=== PATIENT | female | born 1980 | race Caucasian/White ===

== ENCOUNTER 2018-10-29 13:30 | Outpatient (RCR) | payer OTHER, MEDICAID, SELFPAY ==
--- NOTE | 2018-10-15 16:24 | HP.PTEVAL ---
Patient's Visit Information REI CAMPO is a 38 year old F referred to Physical Therapy by ZAHEER MANJARREZ with a diagnosis of R hip pain s/p replacement, LBP, IT band syndrome. 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 She started working about 4 mo ago...Works at [employer] in [employer] [facility] and she can only work 5 hours shifts cause she cant stand on her leg anymore. Happening more and more where her leg is like and she has to drag it around for awhile and then it likes comes back to life and still has the aching. This happens 2-3 X/ day while working. When it happens the pain is like 50/10 with sharp stabiing pains in whole thigh area in the back of her hip. Dr thinks that the leslee that is in leg might be wobbling. Dr wants 6 weeks of PT.... Pt can walk and deal with the pain. She goes up stairs to get up into the house and holds onto the rail. SHe is totally weak B legs. No PT after the THR... Pt has nerve pain at scar area.... Pt can not take more then tylenol because of CKD..... - Pain R hip pain Pain Intensity (Out of 10): 7 Pain Intensity Range: 8 - Objective Gait: Walks with very antalgic gait with decrease stance time on the r SIDE with major limp. Trunk AROM: Flex, ext 50%. LE MMT: Able to 50% normal ROM Bridge, not able to do SLR on the R. Hip flex R 3-/4, L 4-/5, hip abd R 3-/5 and L 4+/5, knee flex B 4/5, knee ext B 4/5. Not able to walk on toes. Needs min A and still struggles with supine to sit. Pt asked for help to sit up. Stuggled with rolling side to side. Has not tried to lay on her stomach. Pt not able to s/l hip abd against gravity - Goals Goal 1:: I HEP Goal Time Frame: 4-6 Weeks Goal 2:: Increase R hip strength to be able to complete 2 X 10 S/L hip abd and SLR without difficulty Goal Time Frame: 4-6 Weeks Goal 3:: Be able to complete 5 hour shift at work without leg giving out on her Goal Time Frame: 4-6 Weeks Goal 4:: Decrease R hip pain to 1/10 with ADL's Goal Time Frame: 4-6 Weeks - Rehabilitation Potential Rehabilitation Potential: Good - Anticipated Interventions Patient/Client Instruction: Educate patient on: Condition For the Purpose of:: To decrease pain, To increase ROM, To improve nutrient delivery to tissue, To improve muscle performance and motor function, To increase tolerance to activity/condition/position, To improve performance and independence with ADL's, To decrease level of supervision to perform tasks, To improve gait and locomotor functions, To decrease soft tissue restriction, To increase flexibility/ROM Therapeutic Exercise to Include: Strength training, Gait and locomotor training, In an aquatic setting, Active ROM, Dynamic Lumbar Stabilization For the Purpose of:: To decrease pain, To improve nutrient delivery to tissue, To improve muscle performance and motor function, To improve ability to perform ADL's, To increase tolerance to activity/condition/position, To improve ability of physical actions for home/community/work/leisure, To improve gait and locomotor functions, To improve health of tissue Manual Therapy Techniques to Include: Scar massage, Soft tissue mobilization For the Purpose of:: To improve health of tissue Thank you for the opportunity to evaluate your patient. For Medicare and Medicare HMO plans, please review the plan of care and approve it. It will need to be FAXED BACK to us at [phone] for Medicare purposes. For Medicare only, by signing this I certify the plan of care. Please let me know if there are questions or concerns regarding this plan of care. Physician Signature: Date:
--- OUTSIDE RECORDS SUMMARY | 2018-12-10 18:43 | XMS RPT_ITS | Summary of Care ---
:1980 Author Organization [facility] Address [address] [place] [address] Phone Care Team Providers Name Role Phone Harvey Silverio MD Primary Care Provider Jose Mcghee MD Unavailable Encounter Details Date Type Department Care Team Description 10/31/2017 Hospital Encounter [facility] Harvey Silverio MD [address] [facility] [address] [place] [phone] [place], [place] [id number] Allergies No Known Allergiesas of this encounter Medications Prescription Sig. Disp. Refills Start Date End Date Status citalopram (CELEXA) 40 Take 40 mg by Active MG tablet mouth daily. traMADol (ULTRAM) 50 mg Take 50 mg by Active tablet mouth every 8 (eight) hours as needed for pain Takes 2 tabs every 8 hours . aspirin 325 MG tablet Take 325 mg by Active mouth 2 (two) times a day. oxyCODONE-acetaminophen Take 1-2 tablets 60 tablet 0 08/08/2016 Active (PERCOCET) 5-325 mg per by mouth every 4 tabletIndications: to 6 hours as Status post right hip needed for pain. replacement acetaminophen-codeine One tablet every 60 tablet 0 10/09/2016 Active (TYLENOL-CODEINE #3) 8 hours NEEDED 300-30 mg per for pain. tabletIndications: S/P hip replacement, right as of this encounter Active Problems Problem Noted Date Preoperative clearance 07/06/2016 Last Assessment & Plan: Patient is asymptomatic from a cardiac standpoint. She has no prior cardiac history. Her EKG is unremarkable. Given her paucity of symptoms and unremarkable EKG, I do not feel that further testing is indicated. I would consider her an acceptable risk for surgery from my point of view. Right leg pain Fibrous dysplasia of bone Hypertension IBS (irritable bowel syndrome) Social History Tobacco Use Types Packs/Day Years Used Date Former Smoker Cigarettes 0.25 Comments: Patient smokes the e cigarettes. Alcohol Use Drinks/Week oz/Week Comments No 0 Standard drinks or equivalent 0.0 Sex Assigned at Date Recorded Not on file as of this encounter Plan of Treatment Upcoming Encounters Date Type Specialty Care Team Description 01/29/2018 Hospital Encounter Alphonse Tripathi MD [address] [place] [address] [phone] Health Maintenance Due Date Last Done Comments PAP SMEAR 1980 TETANUS EVERY 10 YR 1978 URINE MICROALBUMIN 1988 SEQUENTIAL INFLUENZA VACCINE (#1) 2017 as of this encounter Insurance Payer Benefit Plan / Group Subscriber ID Type Phone Address AETNA AETNA CHOICE POS/POSII/PREMIER CARE/PREMIER [id number] CARE PLUS as of this encounter
--- OUTSIDE RECORDS SUMMARY | 2018-12-10 18:43 | XMS RPT_ITS | Summary of Care ---
:1980 Author Organization [facility] Address [address] [place] [address] Phone Care Team Providers Name Role Phone Harvey Silverio MD Primary Care Provider Jose Mcghee MD Unavailable Encounter Details Date Type Department Care Team Description 09/18/2017 Hospital Encounter [facility] Harvey Silverio MD [address] [place] [phone] [place], [place] [phone] Allergies No Known Allergiesas of this encounter [...] of bone Hypertension IBS (irritable bowel syndrome) as of this encounter Social History Tobacco Use Types Packs/Day Years Used Date Former Smoker Cigarettes 0.25 Comments: Patient smokes the e cigarettes. Alcohol Use Drinks/Week oz/Week Comments No 0 Standard drinks or equivalent 0.0 Sex Assigned at Date Recorded Not on file as of this encounter Plan of Treatment Upcoming Encounters Date Type Specialty Care Team Description 10/31/2017 Hospital Encounter Harvey Silverio MD [address] [place] [address] [phone] Health Maintenance Due Date Last Done Comments PAP SMEAR 1980 TETANUS EVERY 10 YR 1978 SEQUENTIAL INFLUENZA VACCINE (#1) 2017 as of this encounter Results Basic Metabolic Panel (09/18/2017 3:15 PM) Component Value Ref Range Glucose 89 70 - 99 mg/dL Comment: This test result might be falsely depressed or falsely elevated on samples drawn from patients taking Sulfasalazine and Sulfapyridine. Venipuncture should occur prior to taking either of these drugs. BUN 12 8 - 25 mg/dL Creatinine 1.20 (H) 0.40 - 1.10 mg/dL eGFR 50 (L) >60 ml/min/1.73sq.m Comment: Non- GFR Calc eGFR is an estimated Glomerular Filtration Rate based on the value of the patient's serum creatinine. In outpatients, eGFR should be used as a helpful tool in screening for CKD. In inpatients or patients with acute renal failure, eGFR represents the GFR at the moment of the draw and should be used with caution. eGFR >=60Comment: GFR Calc ml/min/1.73sq.m Calcium 9.8 8.4 - 10.2 mg/dL Sodium 141 135 - 145 mmol/L Potassium 3.8 3.5 - 5.1 mmol/L Chloride 108 98 - 108 mmol/L CO2 25 21 - 32 mmol/L Specimen Performing Laboratory Blood [address] [address] in this encounter Insurance Payer Benefit Plan / Group Subscriber ID Type Phone Address AETNA AETNA CHOICE POS/POSII/PREMIER CARE/PREMIER [id number] CARE PLUS as of this encounter
--- OUTSIDE RECORDS SUMMARY | 2018-12-10 18:43 | XMS RPT_ITS | Summary of Care ---
:1980 Author Organization [facility] Address [address] [place] [address] Phone Care Team Providers Name Role Phone Harvey Silverio MD Primary Care Provider Jose Mcghee MD Unavailable Encounter Details Date Type Department Care Team Description 07/26/2017 Hospital Encounter [facility] Harvey Silverio MD [address] [place] [phone] [place], [place] [phone] Allergies No Known Allergiesas of this encounter [...] Encounters Date Type Specialty Care Team Description 08/02/2017 Hospital Encounter Harvey Silverio MD [address] [place], [place] [id number] [phone] Health Maintenance Due Date Last Done Comments PAP SMEAR 1980 TETANUS EVERY 10 YR 1978 SEQUENTIAL INFLUENZA VACCINE (#1) 2017 as of this encounter Results Hemoglobin A1c (07/26/2017 8:19 AM) Component Value Ref Range Hemoglobin A1C 5.0 4.1 - 6.5 % Specimen Performing Laboratory Blood [address] [address] Cortisol (07/26/2017 8:19 AM) Component Value Ref Range Cortisol 16.78 3.09 - 22.40 mcg/dL Specimen Performing Laboratory Blood [address] [address] D-Dimer, Quantitative (07/26/2017 8:19 AM) Component Value Ref Range D-Dimer 0.41 <0.5 mcg/ml (FEU) Comment: The D-Dimer cut-off value of 0.50 ug/mL (FEU) is useful for the exclusion of PE and as an aid in the diagnosis of DVT when used in conjunction with clinical assessment pre-test probabilities. Specimen Performing Laboratory Blood [address] [address] Lipid Panel (07/26/2017 8:19 AM) Component Value Ref Range Cholesterol 153 100 - 199 mg/dL Triglycerides 65 25 - 120 mg/dL HDL 44 40 - 59 mg/dL LDL 96 10 - 150 mg/dL VLDL 13 5 - 40 mg/dL CHOL/HDL Ratio 3.5 3.2 - 5.0 Comment: Female Coronary Heart Disease Risk Factor (CHDRF): Average risk= 4.4 1/2 Average risk= 3.3 2 times Average risk= 7.1 Specimen Performing Laboratory Blood [address] [address] Comprehensive Metabolic Panel (07/26/2017 8:19 AM) Component Value Ref Range Glucose 95 70 - 99 mg/dL Comment: This test result might be falsely depressed or falsely elevated on samples drawn from patients taking Sulfasalazine and Sulfapyridine. Venipuncture should occur prior to taking either of these drugs. BUN 15 8 - 25 mg/dL Creatinine 1.25 (H) 0.40 - 1.10 mg/dL eGFR 48 (L) >60 ml/min/1.73sq.m Comment: Non- GFR Calc eGFR is an estimated Glomerular Filtration Rate based on the value of the patient's serum creatinine. In outpatients, eGFR should be used as a helpful tool in screening for CKD. In inpatients or patients with acute renal failure, eGFR represents the GFR at the moment of the draw and should be used with caution. eGFR 58 (L)Comment: GFR Calc >60 ml/min/1.73sq.m Calcium 8.4 8.4 - 10.2 mg/dL Sodium 140 135 - 145 mmol/L Potassium 4.2 3.5 - 5.1 mmol/L Chloride 111 (H) 98 - 108 mmol/L CO2 21 21 - 32 mmol/L AST 18 0 - 45 U/L Comment: This test result might be falsely depressed or falsely elevated on samples drawn from patients taking Sulfasalazine and Sulfapyridine. Venipuncture should occur prior to taking either of these drugs. ALT 27 14 - 65 U/L Comment: This test result might be falsely depressed or falsely elevated on samples drawn from patients taking Sulfasalazine and Sulfapyridine. Venipuncture should occur prior to taking either of these drugs. Alkaline Phosphatase 102 40 - 140 U/L Bilirubin, Total 0.4 0.3 - 1.2 mg/dL Total Protein 7.1 6.0 - 8.0 g/dL Albumin 3.8 3.2 - 5.2 g/dL Specimen [place] [address] TSH (07/26/2017 8:19 AM) Component Value Ref Range TSH 0.94 0.320 - 5.000 uIU/mL Specimen [place] [address] CBC and Differential (07/26/2017 8:19 AM) Component Value Ref Range WBC 9.2 3.4 - 10.6 K/mcL RBC 4.70 3.7 - 5.0 M/mcL Hemoglobin 15.2 11.6 - 15.4 g/dL Hematocrit 44.0 34.4 - 44.8 % MCV 93.5 82.6 - 98.9 FL MCH 32.4 27.9 - 33.9 pg MCHC 34.7 33.1 - 35.1 g/dL RDW 13.6 10.0 - 14.4 % Platelets 244 162 - 402 K/mcL MPV 9.7 7.0 - 10.6 FL Absolute Neutrophils 6.9 1.2 - 6.9 K/mcL Absolute Lymphocytes 1.5 1.0 - 3.7 K/mcL Absolute Monocytes 0.4 0.1 - 0.6 K/mcL Absolute Eosinophils 0.3 0 - 0.5 K/mcL Absolute Basophils 0.1 0 - 0.2 K/mcL Segmented Neut 75.4 % Lymphocytes 15.8 % Monocytes 4.5 % Eosinophils 3.2 % Basophils 1.1 % Specimen Performing Laboratory Blood [address] [address] in this encounter Insurance Payer Benefit Plan / Group Subscriber ID Type Phone Address AETNA AETNA CHOICE POS/POSII/PREMIER CARE/PREMIER [id number] CARE PLUS as of this encounter
--- OUTSIDE RECORDS SUMMARY | 2018-12-10 18:43 | XMS RPT_ITS | Summary of Care ---
:1980 Author Organization [facility] Address [address] [place] [address] Care Team Providers Name Role Phone Jose Mcghee MD Unavailable Alphonse Tripathi MD Primary Care Provider Reason for Visit Reason Comments Urinary Tract Infection Encounter Details Date Type Department Care Team Description 09/18/2018 Office Visit [facility] Primary Care Afia Thomas Dysuria (Primary Dx) Physicians RICARDO Fuentes [address] [place] [id number] [place], [place] [phone] [facility] [phone] Allergies Active Allergy Reactions Severity Noted Date Comments Tetracyclines 09/18/2018 SEVERE HEADACHES as of this encounter Medications Prescription Sig. Disp. Refills Start Date End Date Status buPROPion (WELLBUTRIN Take 1 (one) 60 tablet 01/29/2018 Active SR) 150 MG 12 hr tablet (150 mg 9 tablet total) by mouth 2 (two) times a day. gabapentin Take 600 mg by Active (NEURONTIN) 600 MG mouth 3 tablet (three) times a day. topiramate (TOPAMAX) Take 50 mg by Active 50 MG tablet mouth 2 (two) times a day. amitriptyline Take 1 (one) 30 tablet 08/12/2018 Active (ELAVIL) 25 MG tablet tablet (25 mg total) by mouth nightly. tiZANidine (ZANAFLEX) Take 1 (one) 30 tablet 08/12/2018 Active 4 MG tablet tablet (4 mg total) by mouth daily as needed for muscle spasms. sulfamethoxazole-trim Take 1 (one) 6 tablet 0 09/18/2018 Active ethoprim (BACTRIM tablet by 8 DS,SEPTRA DS) 800-160 mouth 2 (two) mg per times a day tabletIndications: for 3 days. Dysuria phenazopyridine Take 1 (one) 6 tablet 0 09/18/2018 Active (PYRIDIUM) 200 MG tablet (200 mg 8 tabletIndications: total) by Dysuria mouth 3 (three) times a day for 2 days. lidocaine (LIDODERM) Place 1 patch Discontinued 5 % patch on the skin 8 daily Remove & Discard patch within 12 hours or as directed by MD . as of this encounter Active Problems Problem Noted Date Dysuria 09/18/2018 Last Assessment & Plan: Likely to be cystitis with possible ureteral involvement based on her symptoms and presentation. Afebrile. She has had no menses for the past 4 months, so I am checking a urine hCG for her convenience. Prescribing her Bactrim DS as well as Pyridium for symptomatic relief. I have educated her on potential complications from UTIs. Zeinab understands to call us or go to the ED if her symptoms worsen or she becomes systemically ill. Hyperglycemia 08/12/2018 Muscle spasms of both lower extremities 08/12/2018 CKD (chronic kidney disease) stage 3, GFR 30-59 ml/min ([facility]) 05/07/2018 Chronic right hip pain 01/29/2018 Chronic pain syndrome 01/28/2018 Mood disorder of depressed type 01/28/2018 Fibrous dysplasia of bone IBS (irritable bowel syndrome) Resolved Problems Problem Noted Date Resolved Date Venous insufficiency of leg 01/28/2018 01/29/2018 Preoperative clearance 07/06/2016 01/29/2018 Last Assessment & Plan: Patient is asymptomatic from a cardiac standpoint. She has no prior cardiac history. Her EKG is unremarkable. Given her paucity of symptoms and unremarkable EKG, I do not feel that further testing is indicated. I would consider her an acceptable risk for surgery from my point of view. Right leg pain 01/29/2018 Hypertension 05/07/2018 Immunizations Name Dates Previously Given Next Due Tdap 10/31/2017 as of this encounter Social History Tobacco Use Types Packs/Day Years Used Date Former Smoker Cigarettes 0.25 Smokeless Tobacco: Never Used Comments: Patient smokes the e-cigarettes. Alcohol Use Drinks/Week oz/Week Comments No 0 Standard drinks or equivalent 0.0 Sex Assigned at Date Recorded Not on file as of this encounter Last Filed Vital Signs Vital Sign Reading Time Taken Blood Pressure 138/82 09/18/2018 9:08 AM EDT Pulse 80 09/18/2018 9:08 AM EDT Temperature 36.4 ??C (97.5 ??F) 09/18/2018 9:08 AM EDT Respiratory Rate 18 09/18/2018 9:08 AM EDT Oxygen Saturation 98% 09/18/2018 9:08 AM EDT Inhaled Oxygen Concentration - - Weight 140 kg (308 lb 9.6 oz) 09/18/2018 9:08 AM EDT Height - - Body Mass Index 45.57 09/18/2018 9:08 AM EDT in this encounter Instructions Patient Instructions - Afia Thomas CNP - 09/18/2018 9:34 AM EDT- Take Tylenol as needed for pain. - If your symptoms get worse, call us or go to the ED.in this encounter Progress Notes Afia Thomas CNP - 09/18/2018 9:17 AM EDTFormatting of this note may be different from the original. Zeinab Pritchett 1980 [id number] Chief Complaint Patient presents with ??? Urinary Tract Infection History Outpatient Prescriptions Marked as Taking for the 09/18/18 encounter (Office Visit) with Afia Thomas CNP Medication Sig Dispense Refill ??? amitriptyline (ELAVIL) 25 MG tablet Take 1 (one) tablet (25 mg total) by mouth nightly. 30 tablet 11 ??? buPROPion (WELLBUTRIN SR) 150 MG 12 hr tablet Take 1 (one) tablet (150 mg total) by mouth 2 (two) times a day. 60 tablet 11 ??? gabapentin (NEURONTIN) 600 MG tablet Take 600 mg by mouth 3 (three) times a day. ??? tiZANidine (ZANAFLEX) 4 MG tablet Take 1 (one) tablet (4 mg total) by mouth daily as needed for muscle spasms. 30 tablet 11 ??? topiramate (TOPAMAX) 50 MG tablet Take 50 mg by mouth 2 (two) times a day. Patient Active Problem List Diagnosis SNOMED CT(R) ??? Fibrous dysplasia of bone FIBROUS DYSPLASIA OF BONE ??? IBS (irritable bowel syndrome) IRRITABLE BOWEL SYNDROME ??? Chronic pain syndrome CHRONIC PAIN SYNDROME ??? Mood disorder of depressed type DEPRESSIVE DISORDER ??? Chronic right hip pain HIP PAIN ??? CKD (chronic kidney disease) stage 3, GFR 30-59 ml/min ([facility]) CHRONIC KIDNEY DISEASE STAGE 3 ??? Hyperglycemia HYPERGLYCEMIA ??? Muscle spasms of both lower extremities LOWER LIMB SPASTICITY ??? Dysuria DYSURIA Past Medical History: Diagnosis Date ??? Chronic pain syndrome 01/28/2018 ??? Fibrous dysplasia of bone ??? Fractures ??? Hypertension ??? IBS (irritable bowel syndrome) ??? Mood disorder of depressed type 01/28/2018 ??? Right leg pain ??? Venous insufficiency of leg 01/28/2018 Past Surgical History: Procedure Laterality Date ??? SECTION, CLASSIC ??? FRACTURE SURGERY Right hip ??? HIP SURGERY Right ??? TOTAL HIP ARTHROPLASTY Right Social History Social History ??? Marital status: Spouse name: N/A ??? Number of children: N/A ??? Years of education: N/A Occupational History ??? Not on file. Social History Main Topics ??? Smoking status: Former Smoker Packs/day: 0.25 Types: Cigarettes ??? Smokeless tobacco: Never Used Comment: Patient smokes the e-cigarettes. ??? Alcohol use No ??? Drug use: No ??? Sexual activity: Yes Partners: Male Other Topics Concern ??? Not on file Social History Narrative ??? No narrative on file Family History Problem Relation Age of Onset ??? Hypertension Father ??? Hypertension Sister ??? Hypertension Maternal Grandmother ??? Hypertension Mother ??? Hypertension Maternal Grandfather SUBJECTIVE History of Present Illness Zeinab is a 38 year old female who presents with dysuria. The problem began a couple of days ago and has gradually worsened. She is experiencing burning pain with every urination. Associated symptoms include discharge, hesitancy, urgency, frequency, flank pain, and nausea. She does not have chills, sweats, hematuria, or vomiting. She has tried [id number] Tylenol and 1-day of Uristat for the pain with little to no improvement. Her last LMP was April 2018. She is sexually active and has 1 partner (her ). Review of Systems Constitutional: Negative for appetite change, chills and fever. Gastrointestinal: Positive for nausea. Negative for abdominal pain, constipation, diarrhea and vomiting. Genitourinary: Positive for dysuria, flank pain, frequency, menstrual problem, pelvic pain, urgency and vaginal discharge. Negative for difficulty urinating and hematuria. Skin: Negative for color change and rash. OBJECTIVE Vitals: 09/18/18 0908 BP: 138/82 BP Location: Right arm Patient Position: Sitting BP Cuff Size: X-large Adult Pulse: 80 Resp: 18 Temp: 97.5 ??F (36.4 ??C) TempSrc: Oral SpO2: 98% Weight: (!) 140 kg (308 lb 9.6 oz) Physical Exam Constitutional: She appears well-developed and well-nourished. She appears ill. HENT: Head: Normocephalic. Cardiovascular: Normal rate, regular rhythm and normal heart sounds. Exam reveals no gallop and no friction rub. No murmur heard. Pulmonary/Chest: Effort normal and breath sounds normal. No respiratory distress. She exhibits no tenderness. Abdominal: Soft. Bowel sounds are normal. She exhibits no distension. There is no hepatosplenomegaly. There is tenderness. There is CVA tenderness. Vitals reviewed. ASSESSMENT & PLAN Problem List Items Addressed This Visit Other Dysuria - Primary Likely to be cystitis with possible ureteral involvement based on her symptoms and presentation. Afebrile. She has had no menses for the past 4 months, so I am checking a urine hCG for her convenience. Prescribing her Bactrim DS as well as Pyridium for symptomatic relief. I have educated her on potential complications from UTIs. Zeinab understands to call us or go to the ED if her symptoms worsen or she becomes systemically ill. Relevant Medications sulfamethoxazole-trimethoprim (BACTRIM DS,SEPTRA DS) 800-160 mg per tablet phenazopyridine (PYRIDIUM) 200 MG tablet Other Relevant Orders Outreach Urinalysis w/ Reflex Culture , Urine For any new medications prescribed today, Zeinab was educated about indications for the medication,how to take the medication and potential side effects of the medications. She is to follow-up with Dr. Tripathi in November, for her chronic medical problems, or as needed. Afia Thomas, MS, PIE MAKER MACHINE-PHYSICAL THERAPY PROFESSOR, MILITARY SOURCE OPERATIONS SPECIALIST-BCin this encounter Miscellaneous Notes Assessment & Plan Note - William Afia Fuentes, PHYSICAL THERAPY PROFESSOR - 09/18/2018 9:41 AM EDTAssociated Problem(s): DysuriaLikely to be cystitis with possible ureteral involvement based on her symptoms and presentation. Afebrile. She has had no menses for the past 4 months, so I am checking a urine hCG for her convenience. Prescribing her Bactrim DS as well as Pyridium for symptomatic relief. I have educated her on potential complications from UTIs. Zeinab understands to call us or go to the ED if her symptoms worsen or she becomes systemically ill.in this encounter Plan of Treatment Upcoming Encounters Date Type Specialty Care Team Description 11/26/2018 Office Visit Primary Care Alphonse Tripathi MD [address] [place] [id number] Scheduled Tests Name Priority Associated Diagnoses Order Schedule Outreach Urinalysis w/ Routine Dysuria Ordered: 09/18/2018 Reflex Culture , Urine Routine Dysuria 1 Occurrences starting 09/18/2018 until 09/18/2019 Health Maintenance Due Date Last Done Comments MAMMOGRAM 1980 PAP SMEAR 1980 URINE MICROALBUMIN 1988 LIPID PANEL 01/23/2018 07/26/2017 SEQUENTIAL INFLUENZA VACCINE (#1) 2018 TETANUS EVERY 10 YR 10/31/2027 10/31/2017 as of this encounter Visit Diagnoses Diagnosis Dysuria - Primary
--- OUTSIDE RECORDS SUMMARY | 2018-12-10 18:43 | XMS RPT_ITS | Summary of Care ---
:1980 Author Organization [facility] Address [address] [id number] Care Team Providers Name Role Phone Jose Mcghee MD Unavailable Alphonse Tripathi MD Primary Care Provider Encounter Details Date Type Department Care Team Description 08/06/2018 Hospital Encounter [facility] Alphonse Tripathi [address] [place] [address] [address] [place] [phone] Allergies No Known Allergiesas of this encounter Medications Prescription Sig. Disp. Refills Start Date End Date Status tiZANidine (ZANAFLEX) Take 4 mg by Active 4 MG tablet mouth 3 (three) times a day as needed for muscle spasms. lidocaine (LIDODERM) 5 Place 1 patch on Active % patch the skin daily Remove & Discard patch within 12 hours or as directed by . amitriptyline (ELAVIL) Take 1 (one) 30 tablet 3 01/29/2018 Active 25 MG tablet tablet (25 mg total) by mouth nightly. buPROPion (WELLBUTRIN Take 1 (one) 60 tablet 11 01/29/2018 01/29/2019 Active SR) 150 MG 12 hr tablet (150 mg tablet total) by mouth 2 (two) times a day. gabapentin (NEURONTIN) Take 600 mg by Active 600 MG tablet mouth 3 (three) times a day. topiramate (TOPAMAX) Take 50 mg by Active 50 MG tablet mouth 2 (two) times a day. traMADol (ULTRAM) 50 Take 1 (one) 30 tablet 0 05/07/2018 Active mg tabletIndications: tablet (50 mg Chronic right hip pain total) by mouth every 12 (twelve) hours as needed for pain. as of this encounter Active Problems Problem Noted Date CKD (chronic kidney disease) stage 3, GFR 30-59 ml/min 05/07/2018 Chronic right hip pain 01/29/2018 Chronic [...] Tobacco: Never Used Comments: Patient smokes the e cigarettes. Alcohol Use Drinks/Week oz/Week Comments No 0 Standard drinks or equivalent 0.0 Sex Assigned at Date Recorded Not on file as of this encounter Plan of Treatment Upcoming Encounters Date Type Specialty Care Team Description 08/12/2018 Office Visit Primary Care Alphonse Tripathi MD [address] [place] [address] [phone] Health Maintenance Due Date Last Done Comments MAMMOGRAM 1980 PAP SMEAR 1980 URINE MICROALBUMIN 1988 LIPID PANEL 01/23/2018 07/26/2017 SEQUENTIAL INFLUENZA VACCINE (#1) 2018 TETANUS EVERY 10 YR 10/31/2027 10/31/2017 as of this encounter Procedures Procedure Name Priority Date/Time Associated Diagnosis Comments BASIC METABOLIC Routine 08/06/2018 1:29 PM Results for this PANEL EDT procedure are in the results section. in this encounter Results Basic Metabolic Panel (08/06/2018 1:29 PM) Glucose 120 (H) 70 - 99 mg/dL [facility] Comment: HOSPITAL This test result might be falsely depressed or falsely elevated on samples drawn from patients taking Sulfasalazine and Sulfapyridine. Venipuncture should occur prior to taking either of these drugs. BUN 11 8 - 25 mg/dL [facility] Creatinine 1.20 (H) 0.40 - 1.10 mg/dL [facility] eGFR 50 (L) >60 [facility] Comment: ml/min/1.73sq.m [facility] Non- GFR Calc eGFR is an estimated Glomerular Filtration Rate based on the value of the patient's serum creatinine. In outpatients, eGFR should be used as a helpful tool in screening for CKD. In inpatients or patients with acute renal failure, eGFR represents the GFR at the moment of the draw and should be used with caution. eGFR >=60Comment: ml/min/1.73sq.m [facility] Citizen [place] GFR Calc HOSPITAL Calcium 9.0 8.4 - 10.2 mg/dL [facility] Sodium 141 135 - 145 mmol/L [facility] Potassium 4.2 3.5 - 5.1 mmol/L [facility] Chloride 110 (H) 98 - 108 mmol/L [facility] CO2 27 21 - 32 mmol/L [facility] Specimen Blood Performing Organization Address City/State/Zipcode Phone Number [facility] [address] [place] [address] in this encounter
--- OUTSIDE RECORDS SUMMARY | 2018-12-10 18:43 | XMS RPT_ITS | Summary of Care ---
:1980 Author Organization [facility] Address [address] [place] [address] Phone Care Team Providers Name Role Phone Harvey Silverio MD Primary Care Provider Jose Mcghee MD Unavailable Encounter Details Date Type Department Care Team Description 08/02/2017 Hospital Encounter [facility] Harvey Silverio MD [address] [place] [phone] [place], [place] [phone] Allergies No Known Allergiesas of this encounter [...] Hospital Encounter Harvey Silverio MD [address] [place] [address] [phone] Health Maintenance Due Date Last Done Comments PAP SMEAR 1980 TETANUS EVERY 10 YR 1978 SEQUENTIAL INFLUENZA VACCINE (#1) 2017 as of this encounter Results D-Dimer, Quantitative (07/11/2017 2:37 PM) Component Value Ref Range D-Dimer 0.30 <0.5 mcg/ml (FEU) Comment: The D-Dimer cut-off value of 0.50 ug/mL (FEU) is useful for the exclusion of PE and as an aid in the diagnosis of DVT when used in conjunction with clinical assessment pre-test probabilities. Specimen Performing Laboratory Blood [address] [address] in this encounter Insurance Payer Benefit Plan / Group Subscriber ID Type Phone Address AETNA AET[employer] CHOICE POS/POSII/PREMIER CARE/PREMIER [id number] CARE PLUS as of this encounter
--- OUTSIDE RECORDS SUMMARY | 2018-12-10 18:43 | XMS RPT_ITS | Summary of Care ---
:1980 Author Organization [facility] Address [address] [place] [address] Care Team Providers Name Role Phone Jose Mcghee MD Unavailable Alphonse Tripathi MD Primary Care Provider Encounter Details Date Type Department Care Team Description 09/18/2018 Hospital Encounter [facility] [address] [place] [address] Allergies Active Allergy Reactions Severity Noted Date Comments Tetracyclines 09/18/2018 SEVERE HEADACHES as of this encounter Medications Prescription Sig. Disp. Refills Start Date End Date Status buPROPion (WELLBUTRIN Take 1 (one) 60 tablet 11 01/29/2018 01/29/2019 Active SR) 150 MG 12 hr tablet tablet (150 mg total) by mouth 2 (two) times a day. gabapentin (NEURONTIN) Take 600 mg by Active 600 MG tablet mouth 3 (three) times a day. topiramate (TOPAMAX) 50 Take 50 mg by Active MG tablet mouth 2 (two) times a day. amitriptyline (ELAVIL) Take 1 (one) 30 tablet 08/12/2018 Active 25 MG tablet tablet (25 mg total) by mouth nightly. tiZANidine (ZANAFLEX) 4 Take 1 (one) 30 tablet 08/12/2018 Active MG tablet tablet (4 mg total) by mouth daily as needed for muscle spasms. sulfamethoxazole-trimeth Take 1 (one) 6 tablet 0 09/18/2018 09/21/2018 Active oprim (BACTRIM DS,SEPTRA tablet by DS) 800-160 mg per mouth 2 (two) tabletIndications: times a day Dysuria for 3 days. phenazopyridine Take 1 (one) 6 tablet 0 09/18/2018 09/20/2018 Active (PYRIDIUM) 200 MG tablet (200 mg tabletIndications: total) by Dysuria mouth 3 (three) times a day for 2 days. as of this encounter Active Problems Problem [...] kidney disease) stage 3, GFR 30-59 ml/min ([facility]) 05/07/2018 Chronic right hip pain 01/29/2018 Chronic [...] Office Visit Primary Care Alphonse Tripathi MD [address] [place] [address] [phone] Health Maintenance Due Date Last Done Comments MAMMOGRAM 1980 PAP SMEAR 1980 URINE MICROALBUMIN 1988 LIPID PANEL 01/23/2018 07/26/2017 SEQUENTIAL INFLUENZA VACCINE (#1) 2018 TETANUS EVERY 10 YR 10/31/2027 10/31/2017 as of this encounter Procedures Procedure Name Priority Date/Time Associated Comments Diagnosis [facility]HS - PREG TEST, Routine 09/18/2018 9:43 AM Results for this URINE QUAL EDT procedure are in the results section. URINALYSIS Routine 09/18/2018 9:43 AM Results for this EDT procedure are in the results section. in this encounter Results URINALYSIS (09/18/2018 9:43 AM) Color, Urine Liana [facility] Character Hazy [facility] Specific [place] 1.020 1.003 - 1.029 [facility] pH, Urine 6.0 4.5 - 8.0 [facility] Glucose, Urine 50 <70 mg/dL [facility] Ketones, Urine Negative NEG;NEGATIVE mg/dL [facility] Protein, Urine 30 (H) <30 mg/dL [facility] Blood, Urine Negative NEG;NEGATIVE [facility] Nitrite, Urine Positive (A) NEG;NEGATIVE [facility] Bilirubin, Urine Negative NEG;NEGATIVE [facility] Urobilinogen, Urine > 2.0 (H) <2 mg/dL [facility] Leukocyte Esterase, Urine Negative Negative [facility] WBCs, Urine 3 0 - 5 /HPF [facility] RBCs, Urine < 1 0 - 5 /HPF [facility] Squamous Epithelial 8 0 - 40 /HPF [facility] Trans. Epithelial < 1 0 - 3 /HPF [facility] Bacteria, Urine Rare NS;RARE /HPF [facility] Mucus, Urine Rare (A) None Seen /HPF [facility] Cast, Hyaline 2 0 - 5 /LPF [facility] Specimen Urine Performing Organization Address City/State/Zipcode Phone Number [facility] [address] [place] [address] Preg test, Urine Qual (09/18/2018 9:43 AM) Preg Test, Urine Qual Negative Negative [facility] Comment: HOSPITAL Rapid test procedural control acceptable. If a negative result is obtained but is suspected, hCG levels may be too low or urine may be too dilute for detection. Another specimen should be collected after 48-72 hours and tested. If waiting 48 hours is not medically advisable, the test result should be confirmed with a more sensitive quantitative serum hCG test. Specimen Urine Performing Organization Address City/State/Zipcode Phone Number [facility] [address] [place] [address] in this encounter
--- OUTSIDE RECORDS SUMMARY | 2018-12-10 18:43 | XMS RPT_ITS | Summary of Care ---
:1980 Author Organization [facility] Address [address] [place] [address] Care Team Providers Name Role Phone Jose Mcghee MD Unavailable Alphonse Tripathi MD Primary Care Provider Reason for Visit Reason Comments Follow-up F/U on chronic medical problems Encounter Details Date Type Department Care Team Description 08/12/2018 Office Visit [facility] Primary Alphonse Tripathi Mood disorder of depressed type (Primary Dx); Care Physicians MD Rashaun CKD (chronic kidney disease) stage 3, GFR 30-59 ml/min ([facility]); [address] Muscle spasms of both lower extremities; [place] [address] [place], [place] Hyperglycemia [phone] [id number] [phone] Allergies No Known Allergiesas of this encounter Medications Prescription Sig. Disp. Refills Start Date End Date Status lidocaine Place 1 patch Active (LIDODERM) 5 % on the skin patch daily Remove & Discard patch within 12 hours or as directed by . buPROPion Take 1 (one) 60 tablet 01/29/2018 01/29/2019 Active (WELLBUTRIN SR) 150 tablet (150 mg MG 12 hr tablet total) by mouth 2 (two) times a day. gabapentin Take 600 mg by Active (NEURONTIN) 600 MG mouth 3 tablet (three) times a day. topiramate Take 50 mg by Active (TOPAMAX) 50 MG mouth 2 (two) tablet times a day. amitriptyline Take 1 (one) 30 tablet 08/12/2018 Active (ELAVIL) 25 MG tablet (25 mg tablet total) by mouth nightly. tiZANidine Take 1 (one) 30 tablet 08/12/2018 Active (ZANAFLEX) 4 MG tablet (4 mg tablet total) by mouth daily as needed for muscle spasms. tiZANidine Take 4 mg by 08/12/2018 Discontinued (ZANAFLEX) 4 MG mouth 3 tablet (three) times a day as needed for muscle spasms. amitriptyline Take 1 (one) 30 tablet 3 01/29/2018 08/12/2018 Discontinued (ELAVIL) 25 MG tablet (25 mg tablet total) by mouth nightly. traMADol (ULTRAM) Take 1 (one) 30 tablet 0 05/07/2018 08/12/2018 Discontinued 50 mg tablet (50 mg tabletIndications: total) by Chronic right hip mouth every 12 pain (twelve) hours as needed for pain. as of this encounter Active Problems Problem Noted Date Hyperglycemia 08/12/2018 Muscle spasms of both lower extremities 08/12/2018 CKD (chronic kidney disease) stage 3, GFR 30-59 ml/min ([facility]) 05/07/2018 Chronic right hip pain 01/29/2018 Chronic [...] Vital Sign Reading Time Taken Blood Pressure 106/78 08/12/2018 11:03 AM EDT Pulse 88 08/12/2018 11:03 AM EDT Temperature 36.6 ??C (97.9 ??F) 08/12/2018 11:03 AM EDT Respiratory Rate 14 08/12/2018 11:03 AM EDT Oxygen Saturation 98% 08/12/2018 11:03 AM EDT Inhaled Oxygen Concentration - - Weight 142.3 kg (313 lb 12.8 oz) 08/12/2018 11:03 AM EDT Height 175.3 cm (5' 9) 08/12/2018 11:03 AM EDT Body Mass Index 46.34 08/12/2018 11:03 AM EDT in this encounter Progress Notes Alphonse Tripathi MD - 08/12/2018 12:22 PM EDTFormatting of this note may be different from the original. Zeinab Newberryjenny 1980 [id number] HPI: Patient was here today to follow-up on her chronic medical problems and recent lab test results. Renal insufficiency: Patient's recent lab tests again showed mild renal insufficiency with a GFR in the stage III CKD range at around 50. Patient denies any signs and symptoms of fluid overload. She has not been taking any [id number] nonsteroidal anti-inflammatory drugs. Depression: Patient has been compliant with the prescribed medications without any significant adverse effects and with reasonable control of her symptoms of depression. Denies any suicidal/homicidal ideation, significant mood swings, hallucinations or delusions. Patient also stated today that she does have intermittent muscle spasms in bilateral legs, sometimesmore in the right lower extremity compared to the left and the leg muscle spasm seem to be worse in the evening time and hence she was prescribed tizanidine by Dr. Silverio and has been taking this medication as needed with good relief of the symptoms and without any adverse effects. She was requestinga refill on the prescription of this medication. Patient Active Problem List Diagnosis SNOMED CT(R) ??? Fibrous dysplasia of bone FIBROUS DYSPLASIA OF BONE ??? IBS (irritable bowel syndrome) IRRITABLE BOWEL SYNDROME ??? Chronic pain syndrome CHRONIC PAIN SYNDROME ??? Mood disorder of depressed type DEPRESSIVE DISORDER ??? Chronic right hip pain HIP PAIN ??? CKD (chronic kidney disease) stage 3, GFR 30-59 ml/min (HCC) CHRONIC KIDNEY DISEASE STAGE 3 ??? Hyperglycemia HYPERGLYCEMIA ??? Muscle spasms of both lower extremities LOWER LIMB SPASTICITY Past Medical History: Diagnosis Date ??? Chronic [...] tobacco: Never Used Comment: Patient smokes the e cigarettes. ??? Alcohol use No ??? Drug use: No ??? Sexual activity: Not on file Other Topics Concern ??? Not on file Social History Narrative ??? No narrative on file Family History Problem Relation Age of Onset ??? Hypertension Father ??? Hypertension Sister ??? Hypertension Maternal Grandmother ??? Hypertension Mother ??? Hypertension Maternal Grandfather Review of Systems Constitutional: Negative. Respiratory: Negative. Cardiovascular: Negative. Gastrointestinal: Negative. Endocrine: Negative. Genitourinary: Negative. Neurological: Negative. Physical Exam: Vitals: 08/12/18 1103 BP: 106/78 BP Location: Right arm Patient Position: Sitting BP Cuff Size: Other (Comment) Pulse: 88 Resp: 14 Temp: 97.9 ??F (36.6 ??C) TempSrc: Oral SpO2: 98% Weight: (!) 142.3 kg (313 lb 12.8 oz) Height: 5' 9 Physical Exam Constitutional: She appears well-nourished. No distress. Neck: Carotid bruit is not present. Cardiovascular: Normal rate, regular rhythm, normal heart sounds and intact distal pulses. No murmur heard. Pulmonary/Chest: Effort normal and breath sounds normal. No respiratory distress. She has no wheezes. She has no rales. Abdominal: Soft. She exhibits no distension. There is no tenderness. Musculoskeletal: She exhibits no edema. Assessment & Plan: SNOMED CT(R) 1. Mood disorder of depressed type DEPRESSIVE DISORDER CBC 2. CKD (chronic kidney disease) stage 3, GFR 30-59 ml/min (HCC) CHRONIC KIDNEY DISEASE STAGE 3 CBC Basic Metabolic Panel 3. Muscle spasms of both lower extremities LOWER LIMB SPASTICITY 4. Hyperglycemia HYPERGLYCEMIA Hemoglobin A1c Depression: Seems to be stable with symptoms under control. Continue same medication regimen. Prescriptions were refilled today. CKD: Seems to be stable. Patient was advised to avoid exposure to any nonsteroidal anti-inflammatory drugs or other nephrotoxic agents like IV contrast etc. We will continue to monitor labs for now.Latest labs were reviewed and discussed in detail with patient. Leg muscle spasms: Patient seems to have chronic history of intermittent leg muscle spasms and good relief of the symptoms with tizanidine as needed. Hence, will continue same medication. Prescription was refilled today. I have discussed mild hyperglycemia on her recent labs. Her recent blood glucose was at 120 but patient claims that it was not a fasting blood sugar. Ordered a hemoglobin A1c. Patient was also encouraged to lose weight. Return in about 3 months (around 11/11/2018), or if symptoms worsen or fail to improve. Patient education & instructions given for: Patient was advised and encouraged to avoid smoking, alcohol and any illicit drug abuse. Patient was also counseled for fall precautions. ?? Details of medical condition explained and patient/caregiver was warned about the adverse consequences of uncontrolled medical conditions. Also cautioned about possible common adverse-effects and drug interactions of prescribed/OTC medications and also OTC/herbal supplements. Patient was recommended to review the medication information pamphlets/package inserts for complete list of adverse effects/contraindications, drug interactions etc., before starting any new medication. Patient was advised to watch for any adverse effects, and instructed to immediately discontinue the medication and call us orgo to ER if experiencing any adverse affects from the medications. Advised not to drive/drink alcohol/use heavy machinery when taking narcotic/other sedating medications. Counseling for diet and exercise provided. ?? All the addressed problems were discussed with the patient and advice given to call with any concerns or return to the office or go to a nearby ER if the symptoms do not improve or worsen or new symptoms develop. ? Health maintenance/preventive screening reviewed / ordered: Offered age- appropriate preventive services and screening. Patient has not had a gynecological exam and screening for quite some time and she would prefer to see an [facility] and hence was provided contact information for women's care. ? Please note: Portions of this chart may have been created with [employer] voice recognition software. Occasional wrong-word or sound-like substitutions may have occurred due to inherent limitations of the voice recognition software. Please read the chart carefully and recognize, using context, where the substitutions have occurred. Alphonse Tripathi MD in this encounter Plan of Treatment Upcoming Encounters Date Type Specialty Care Team Description 11/26/2018 Office Visit Primary Care Alphonse Tripathi MD [address] [place], [place] [id number] [phone] Scheduled Tests Name Priority Associated Diagnoses Order Schedule CBC Routine Mood disorder of depressed Expected: 11/11/2018, type Expires: 08/12/2019 CKD (chronic kidney disease) stage 3, GFR 30-59 ml/min ([facility]) Basic Metabolic Panel Routine CKD (chronic kidney disease) Expected: 11/11/2018, stage 3, GFR 30-59 ml/min Expires: 08/12/2019 ([facility]) Hemoglobin A1c Routine Hyperglycemia Expected: 11/11/2018, Expires: 08/12/2019 Health Maintenance Due Date Last Done Comments MAMMOGRAM 1980 PAP SMEAR 1980 URINE MICROALBUMIN 1988 LIPID PANEL 01/23/2018 07/26/2017 SEQUENTIAL INFLUENZA VACCINE (#1) 2018 TETANUS EVERY 10 YR 10/31/2027 10/31/2017 as of this encounter Visit Diagnoses Diagnosis Mood disorder of depressed type - Primary CKD (chronic kidney disease) stage 3, GFR 30-59 ml/min (HCC) Chronic kidney disease, Stage III (moderate) Muscle spasms of both lower extremities Hyperglycemia Other abnormal glucose
--- OUTSIDE RECORDS SUMMARY | 2018-12-10 18:43 | XMS RPT_ITS | Summary of Care ---
:1980 Author Organization [facility] Address [address] [place] [address] Phone Care Team Providers Name Role Phone Harvey Silverio MD Primary Care Provider Jose Mcghee MD Unavailable Encounter Details Date Type Department Care Team Description 10/31/2017 Hospital Encounter [facility] Harvey Silverio MD [address] [facility] [address] [place] [id number] [place], [place] [id number] Allergies No Known Allergiesas of this encounter [...] Hospital Encounter Alphonse Tripathi MD [address] [place] [id number] Health Maintenance Due Date Last Done Comments PAP SMEAR 1980 TETANUS EVERY 10 YR 1980 URINE MICROALBUMIN 1988 SEQUENTIAL INFLUENZA VACCINE (#1) 2017 as of this encounter Results Basic Metabolic Panel (10/31/2017 9:21 AM) Component Value Ref Range Glucose 100 (H) 70 - 99 mg/dL Comment: This test result might be falsely depressed or falsely elevated on samples drawn from patients taking Sulfasalazine and Sulfapyridine. Venipuncture should occur prior to taking either of these drugs. BUN 12 8 - 25 mg/dL Creatinine 1.10 0.40 - 1.10 mg/dL eGFR 55 (L) >60 ml/min/1.73sq.m Comment: Non- GFR Calc [...] caution. eGFR >=60Comment: GFR Calc ml/min/1.73sq.m Calcium 9.2 8.4 - 10.2 mg/dL Sodium 142 135 - 145 mmol/L Potassium 4.4 3.5 - 5.1 mmol/L Chloride 112 (H) 98 - 108 mmol/L CO2 23 21 - 32 mmol/L Specimen Performing Laboratory Blood [address] [address] in this encounter Insurance Payer Benefit Plan / Group Subscriber ID Type Phone Address AETNA AETNA CHOICE POS/POSII/PREMIER CARE/PREMIER [id number] CARE PLUS as of this encounter
--- OUTSIDE RECORDS SUMMARY | 2018-12-10 18:44 | XMS RPT_ITS | Summary of Care ---
:1980 Author Organization [facility] Address [address] [place] [address] Phone Care Team Providers Name Role Phone Unavailable Primary Care Provider Unavailable Encounter Details Date Type Department Care Team Description 07/11/2017 Hospital Encounter [facility] Harvey Silverio MD [address] [facility] [address] [place] [id number] [place] [address] [phone] Allergies No Known Allergiesas of this encounter [...] Encounters Date Type Specialty Care Team Description 07/16/2017 Office Visit Sports Medicine Jose Mcghee MD [address] [place] [address] [phone] 08/02/2017 Hospital Encounter Harvey Silverio MD [address] [place] [address] [phone] Health Maintenance Due Date Last Done Comments PAP SMEAR 1980 TETANUS EVERY 10 YR 1978 SEQUENTIAL INFLUENZA VACCINE (#1) 2017 as of this encounter Insurance Payer Benefit Plan / Group Subscriber ID Type Phone Address A[employer] AETNA CHOICE POS/POSII/PREMIER CARE/PREMIER [id number] CARE PLUS as of this encounter
--- OUTSIDE RECORDS SUMMARY | 2018-12-10 18:44 | XMS RPT_ITS ---
:1980 Author Organization OHIP Support Name Relationship Address Phone RADHA CAMPO Unavailable [address] + [place] [address] RAÚL LEE Unavailable [address] + [place] [address] [facility] Unavailable [address] + [place] [address] JERMAN CAMPO Unavailable Unavailable + JERMAN CAMPO Unavailable [address] + [place] [address] NOT GIVEN Unavailable [address] + [place], [place] [id number] JERMAN CAMPO Unavailable [address] + [place] [address] JERMAN CAMPO Unavailable [address] + [place] [address] JERMAN CAMPO Unavailable [address] + [place] [address] NOT GIVEN Unavailable [address] + [place], [place] [phone] JERMAN CAMPO Unavailable [address] [phone] [place] [address] RAÚL LEE Unavailable Unavailable + JERMAN CAMPO Unavailable [address] + [place] [address] JERMAN CAMPO Unavailable [address] + [place] [address] NOT GIVEN Unavailable [address] + [place], [place] [phone] JERMAN CAMPO Unavailable [address] + [place] [address] JERMAN CAMPO Unavailable [address] + [place] [address] NOT GIVEN Unavailable [address] + [place], [place] [id number] Care Team Providers Name Role Phone SUSAN GÓMEZ Attending Unavailable SUASN GÓMEZ Referring Unavailable DOCTOR, OUT OF TOWN Primary Care Unavailable REFERRING REFERRING, PHY PHY WO ID~[id number] Primary Care Unavailable OWOC DO, DR. ADILENE Pena Attending Unavailable REFERRING REFERRING, PHY PHY WO ID~[phone] Referring Unavailable AMIRALPHONSE MARKS Attending Unavailable AMIRKENDRICK, ALPHONSE DUNNE Primary Care Unavailable AMIRALPHONSE MARKS Attending Unavailable AMIRKENDRICK, ALPHONSE MCLAUGHLINISHNA Primary Care Unavailable AMIRALPHONSE MARKS Attending Unavailable REYRALPHONSE MARKS Primary Care Unavailable KARLA NAVA Attending Unavailable DEUCE, ALPHONSE DUNNE Primary Care Unavailable Deuce, Dr. Alphonse Toure Admitting Unavailable Amirneni, Dr. Alphonse Toure Attending Unavailable Amirkendrick, Dr. Alphonse Toure Admitting Unavailable Amirnejewels, Dr. Alphonse Toure Attending Unavailable Deuce, Dr. Alphonse Toure Admitting Unavailable Amirkendrick, Dr. Alphonse Toure Attending Unavailable William ROTARY SOIL STABILIZER, Karla Fuentes Admitting Unavailable William ROTARY SOIL STABILIZER, Karla Fuentes Attending Unavailable Ivanauskmodesto, Saulius Admitting Unavailable IvanauskMilagro salvadorus Attending Unavailable Jean Claude, Harvey Primary Care Unavailable Shana Manjarrezshbony Henderson Admitting Unavailable Shana Manjarrezshbony Henderson Attending Unavailable Amirnejewels, Carmelmsee K Referring Unavailable Jean Claude, Harvey Primary Care Unavailable Ophelia, Rusty D Admitting Unavailable Ophelia, Rusty D Attending Unavailable Jean Claude, Harvey Primary Care Unavailable Mykel Rehman Admitting Unavailable Mykel Rehman Attending Unavailable Amirneni, Vamsee K Primary Care Unavailable Ophelia, Rusty D Admitting Unavailable Ophelia, Rusty D Attending Unavailable Amirneni, Vamsee K Primary Care Unavailable Jaylin Block Admitting Unavailable Jaylin Block Attending Unavailable Amirneni, Vamsee K Primary Care Unavailable Evi Rae Admitting Unavailable FarEvi parks Attending Unavailable Amirneni, Vamsee K Primary Care Unavailable Evi Rae Admitting Unavailable Farcharly, Evi Horne Attending Unavailable Amirneni, Vamsee K Primary Care Unavailable RonanEvi parks Attending Unavailable Amirneni, Vamsee K Primary Care Unavailable PROBLEMS PROBLEMS DATE TYPE CONDITION / CODE ATTENDING STATUS SOURCE 09/18/2018 Admitting Dysuria / KARLA NAVA Active [facility] diagnosis R30.0(ICD-10) SHRUTHI Three Repository 08/12/2018 Admitting Other muscle spasm AMIRNENI, Active [facility] diagnosis / M62.838(ICD-10) VAMSEE VIBHA Three Repository 08/12/2018 Admitting Hyperglycemia, AMIRNENI, Active [facility] diagnosis unspecified / VAMSEE VIBHA Three R73.9(ICD-10) Repository 01/28/2018 Admitting Major depressive AMIRNENI, [facility] diagnosis disorder, single VAMSEE VIBHA Three episode, Repository unspecified / F32.9(ICD-10) 05/07/2018 Admitting Chronic kidney AMIRNENI, Active [facility] diagnosis disease, stage 3 VAMSEE VIBHA Three (moderate) / Repository N18.3(ICD-10) 01/29/2018 Admitting Pain in right hip AMIRNENI, Active [facility] diagnosis / M25.551(ICD-10) VAMSEE VIBHA Three Repository 01/29/2018 Admitting Other chronic pain AMIRNENI, Active [facility] diagnosis / G89.29(ICD-10) VAMSEE VIBHA Three Repository 05/07/2018 Admitting Dermatitis, AMIRNENI, Active [facility] diagnosis unspecified / VAMSEE VIBHA Three L30.9(ICD-10) Repository 10/06/2015 Admitting Essential AMIRNENI, Active [facility] diagnosis (primary) VAMSEE VIBHA Three hypertension / Repository I10(ICD-10) PROCEDURES PROCEDURES No Procedure Records FoundRESULTS RESULTS INITAL EVALUATION (1) Observed: 10/15/2018 Status: F Source: YURI Telles PT 7:21 PM [facility] REPOSITORY [facility] [address] [place] [address] Fax REHABILITATION SERVICES INITIAL EVALUATION MR#: [id number] Acct: [id number] Name: REI CAMPO Rep #: [id number] : 1980 38 From: Janet Martinez MPT Referring DrVishal: Status: REG RCR Insurance: AETNA SELF PAY INSURANCE Patient's Visit Information REI CAMPO is a 38 year old F referred to Physical Therapy by RUSTY MANJARREZ with a diagnosis of R hip pain s/p replacement, LBP, IT band syndrome. 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 She started working about 4 mo ago...Works at [employer] in the [employer] and she can only work 5 hours shifts cause she cant stand on her leg anymore. Happening more and more where her leg is like and she has to drag it around for awhile and then it likes comes back to life and still has the aching. This happens 2-3 X/ day while working. When it happens the pain is like 50/10 with sharp stabiing pains in whole thigh area in the back of her hip. thinks that the leslee that is in leg might be wobbling. wants 6 weeks of PT.... Pt can walk and deal with the pain. She goes up stairs to get up into the house and holds onto the rail. SHe is totally weak B legs. No PT after the THR... Pt has nerve pain at scar area.... Pt can not take more then tylenol because of CKD..... - Pain R hip pain Pain Intensity (Out of 10): 7 Pain Intensity Range: 8 - Objective Gait: Walks with very antalgic gait with decrease stance time on the r SIDE with major limp. Trunk AROM: Flex, ext 50%. LE MMT: Able to 50% normal ROM Bridge, not able to do SLR on the R. Hip flex R 3-/4, L 4-/5, hip abd R 3-/5 and L 4+/5, knee flex B 4/5, knee ext B 4/5. Not able to walk on toes. Needs min A and still struggles with supine to sit. Pt asked for help to sit up. Stuggled with rolling side to side. Has not tried to lay on her stomach. Pt not able to s/l hip abd against gravity - Goals Goal 1:: I HEP Goal Time Frame: 4-6 Weeks Goal 2:: Increase R hip strength to be able to complete 2 X 10 S/L hip abd and SLR without difficulty Goal Time Frame: 4-6 Weeks Goal 3:: Be able to complete 5 hour shift at work without leg giving out on her Goal Time Frame: 4-6 Weeks Goal 4:: Decrease R hip pain to 1/10 with ADL's Goal Time Frame: 4-6 Weeks - Rehabilitation Potential Rehabilitation Potential: Good - Anticipated Interventions Patient/Client Instruction: Educate patient on: Condition For the Purpose of:: To decrease pain, To increase ROM, To improve nutrient delivery to tissue, To improve muscle performance and motor function, To increase tolerance to activity/condition/position, To improve performance and independence with ADL's, To decrease level of supervision to perform tasks, To improve gait and locomotor functions, To decrease soft tissue restriction, To increase flexibility/ROM Therapeutic Exercise to Include: Strength training, Gait and locomotor training, In an aquatic setting, Active ROM, Dynamic Lumbar Stabilization For the Purpose of:: To decrease pain, To improve nutrient delivery to tissue, To improve muscle performance and motor function, To improve ability to perform ADL's, To increase tolerance to activity/condition/position, To improve ability of physical actions for home/community/work/leisure, To improve gait and locomotor functions, To improve health of tissue Manual Therapy Techniques to Include: Scar massage, Soft tissue mobilization For the Purpose of:: To improve health of tissue Thank you for the opportunity to evaluate your patient. For Medicare and Medicare HMO plans, please review the plan of care and approve it. It will need to be FAXED BACK to us at [phone] for Medicare purposes. For Medicare only, by signing this I certify the plan of care. Please let me know if there are questions or concerns regarding this plan of care. Physician Signature: Date: <Electronically signed by Janet Martinez MPT> 10/15/18 1921 CC: OUT OF TOWN DOCTOR Signed XR HIP 2-3 VIEWS Observed: 10/13/2018 Status: F Source: ESTHER CHAO 10:23 AM [facility] REPOSITORY Exam Date/Time: 10/13/2018 10:32 EST Reason for Exam: Pain, Non Traumatic Report STUDY: XR Hip 2-3 Views Right; 10/13/2018 10:32 am INDICATION: Pain, Non Traumatic. COMPARISON: None. ACCESSION NUMBER(S): [id number] ORDERING CLINICIAN: Nikita Posadas TECHNIQUE: AP and lateral views of the right hip were obtained. FINDINGS: The patient is status post right total hip arthroplasty. There is no acute fracture or dislocation identified. Lyjt-of-vhxfectw hypertrophic degenerative changes are seen in the right sacroiliac joint. IMPRESSION: 1. Postoperative changes status post right total hip arthroplasty. 2. No evidence of acute fracture or dislocation. 3. Degenerative changes, as described above. FINAL REPORT Dictated: 10/13/2018 11:01 am Kareem Montoya MD Signed (Electronic Signature): 10/13/2018 11:01 am Signed by: Kareem Montoya MD Technologist: [facility] TEST,URINE Collected: 09/18/2018 Status: F Source: [facility] QUAL 9:43 AM [facility] REPOSITORY TYPE CODE TESTS RESULT OUT OF REFERENCE UNITS RANGE LAB PREGUR Negative Normal Negative Test,Urine Qual Result Comment: Rapid test procedural control acceptable. If a negative result is obtained but is suspected, hCG levels may be too low or urine may be too dilute for detection. Another specimen should be collected after 48-72 hours and tested. If waiting 48 hours is not medically advisable, the test result should be confirmed with a more sensitive quantitative serum hCG test. Performed By: #### PREGUR, UA #### Unless otherwise noted, all testing performed by [place] [id number] CLIA: [id number] Ice House Supervisor: Sb Arthur M.D. URINALYSIS, ROUTINE Collected: 09/18/2018 Status: F Source: [facility] 9:43 AM [facility] REPOSITORY TYPE CODE TESTS RESULT OUT OF RANGE REFERENCE UNITS LAB COLOR Normal Color, Urine Liana LAB CHAUR Normal Character Hazy LAB SPGRUR 1.003-1.029 Normal Specific 1.020 [place],Urine LAB PHUR 4.5-8.0 Normal pH,Urine 6.0 LAB GLUCUR < 70 mg/dL Normal Glucose,Urine 50 LAB KETUR NEG;NEGATIVE mg/dL Normal Ketone,Urine Negative LAB PROTUR < 30 mg/dL High Protein,Urine 30 LAB BLDUR NEG;NEGATIVE Normal Blood,Urine Negative LAB NITUR NEG;NEGATIVE Abnormal Nitrite,Urine Positive LAB BILIUR NEG;NEGATIVE Normal Bilirubin,Urine Negative LAB UROUR <2 mg/dL High Urobilinogen,Ur > 2.0 ine LAB LEUESTUR Negative Normal Leuk.Esterase,U Negative rine LAB WBCUR 0-5 /HPF Normal WBC,Urine 3 LAB RBCUR 0-5 /HPF Normal RBC,Urine < 1 LAB SQEPI 0-40 /HPF Normal Squamous 8 Epithelial LAB TRANSEPI 0-3 /HPF Normal Trans. < 1 Epithelial LAB BACTUR NS;RARE /HPF Normal Bacteria,Urine Rare LAB MUCUSUR None Seen /HPF Abnormal Mucus, Urine Rare LAB CASTHY 0-5 /LPF Normal Cast, Hyaline 2 Performed By: #### PREGUR, UA #### Unless otherwise noted, all testing performed by [place] [address] CLIA: [id number] Ice House Supervisor: Sb Arthur M.D. Observed: 09/18/2018 Status: F Source: [facility] CULTURE, URINE 9:43 AM [facility] REPOSITORY Test Name: Culture, Urine Culture Status: Final Culture Report: No significant growth. Micro Source: Urine - clean catch Performed By: #### URCUL #### Unless otherwise noted, all testing performed by [address] [place], [place] [address] CLIA: [id number] Ice House Supervisor: Sb Arthur M.D. BASIC METABOLIC PANEL Collected: 08/06/2018 Status: F Source: [facility] 1:29 PM [facility] REPOSITORY TYPE CODE TESTS RESULT OUT OF REFERENCE UNITS RANGE LAB GLU 70-99 mg/dL High Glucose 120 Result Comment: This test result might be falsely depressed or falsely elevated on samples drawn from patients taking Sulfasalazine and Sulfapyridine. Venipuncture should occur prior to taking either of these drugs. LAB BUN 8-25 mg/dL BUN 11 LAB CREA 0.40-1.10 mg/dL Creatinine High 1.20 LAB eGFR >60 ml/min/1.73s Low q.m eGFR,NonAfrican-Am erican 50 Result Comment: Non- GFR Calc eGFR is an estimated Glomerular Filtration Rate based on the value of the patient's serum creatinine. In outpatients, eGFR should be used as a helpful tool in screening for CKD. In inpatients or patients with acute renal failure, eGFR represents the GFR at the moment of the draw and should be used with caution. LAB eGFRB ml/min/1.73sq.m eGFR, -Bahamian >=60 Result Comment: GFR Calc LAB CALCM 8.4-10.2 mg/dL Calcium 9.0 LAB NA 135-145 mmol/L Sodium 141 LAB K 3.5-5.1 mmol/L Potassium 4.2 LAB CL 98-108 mmol/L Chloride High 110 LAB CO2 21-32 mmol/L CO2 27 Performed By: #### CHEM8 #### Unless otherwise noted, all testing performed by [address] [place], [place] [address] CLIA: [id number] Ice House Supervisor: Sb Arthur M.D. CBC WITH DIFF Collected: 01/29/2018 Status: F Source: [facility] 11:22 AM [facility] REPOSITORY TYPE CODE TESTS RESULT OUT OF REFERENCE UNITS RANGE LAB WBC 3.4-10.6 K/mcL WBC High 10.7 LAB RBC 3.7-5.0 M/mcL RBC 4.85 LAB HGB 11.6-15.4 g/dL Hemoglobin 14.9 LAB HCT 34.4-44.8 % Hematocrit 44.6 LAB MCV 82.6-98.9 FL MCV 91.9 LAB MCH 27.9-33.9 pg MCH 30.6 LAB MCHC 33.1-35.1 g/dL MCHC 33.3 LAB RDW 10.0-14.4 % RDW 14.0 LAB PLT 162-402 K/mcL Platelet Count 225 LAB MPV 7.0-10.6 FL MPV High 10.8 LAB NEUT# 1.2-6.9 K/mcL High Neutrophil # 8.2 LAB LYMPH# 1.0-3.7 K/mcL Lymphocyte # 1.8 LAB MONO# 0.1-0.6 K/mcL Monocyte # 0.4 LAB EOS# 0-0.5 K/mcL Eosinophil # 0.2 LAB BASO# 0-0.2 K/mcL Basophil # 0.1 LAB SEGNEU% % Segmented Neut % 77.1 LAB LYMP% % Lymphocyte% 16.4 LAB MO% % Monocyte % 4.0 LAB EO% % Eosinophil % 1.5 LAB BA% % Basophil % 1.0 Performed By: #### CBCDIF, CMET, TSH #### Unless otherwise noted, all testing performed by [place] [id number] CLIA: [id number] Ice House Supervisor: Sb Arthur M.D. TSH Collected: 01/29/2018 Status: F Source: [facility] 11:22 AM [facility] REPOSITORY TYPE CODE TESTS RESULT OUT OF RANGE REFERENCE UNITS LAB TSH 0.320-5.000 uIU/mL Normal TSH 1.08 Result Comment: Samples from patients routinely receiving high dose biotin therapy (100-300 mg/day) may show falsely decreased results. Please correlate clinically. Performed By: #### CBCDIF, CMET, TSH #### Unless otherwise noted, all testing performed by [address] [place], [place] [address] CLIA: [id number] Ice House Supervisor: Sb Arthur M.D. COMPREHENSIVE METABOLIC Collected: 01/29/2018 Status: F Source: [facility] PANEL 11:22 AM [facility] REPOSITORY TYPE CODE TESTS RESULT OUT OF RANGE REFERENCE UNITS LAB GLU 70-99 mg/dL Normal Glucose 84 Result Comment: This test result might be falsely depressed or falsely elevated on samples drawn from patients taking Sulfasalazine and Sulfapyridine. Venipuncture should occur prior to taking either of these drugs. LAB BUN 8-25 mg/dL Normal BUN 16 LAB CREA 0.40-1.10 mg/dL High Creatinine 1.27 LAB eGFR >60 ml/min/1.73s Low q.m eGFR,NonAfrican-A merican 47 Result Comment: Non- GFR Calc eGFR is an estimated Glomerular Filtration Rate based on the value of the patient's serum creatinine. In outpatients, eGFR should be used as a helpful tool in screening for CKD. In inpatients or patients with acute renal failure, eGFR represents the GFR at the moment of the draw and should be used with caution. LAB eGFRB >60 ml/min/1.73sq.m eGFR, -Bahamian Low 56 Result Comment: GFR Calc LAB CALCM 8.4-10.2 mg/dL Calcium Normal 8.8 LAB NA 135-145 mmol/L Sodium Normal 139 LAB K 3.5-5.1 mmol/L Normal Potassium 4.3 LAB CL 98-108 mmol/L Chloride Normal 108 LAB CO2 21-32 mmol/L CO2 Normal 23 LAB AST 0-45 U/L AST Normal (SGOT) 20 Result Comment: This test result might be falsely depressed or falsely elevated on samples drawn from patients taking Sulfasalazine and Sulfapyridine. Venipuncture should occur prior to taking either of these drugs. LAB ALT 14-65 U/L Normal ALT (SGPT) 47 Result Comment: This test result might be falsely depressed or falsely elevated on samples drawn from patients taking Sulfasalazine and Sulfapyridine. Venipuncture should occur prior to taking either of these drugs. LAB ALKP 40-140 U/L Normal Alkaline Phosphatase 106 LAB BILIT 0.3-1.2 mg/dL Normal Bilirubin,Total 0.4 LAB PROT 6.0-8.0 g/dL Normal Protein, Total 7.5 LAB ALB 3.2-5.2 g/dL Normal Albumin 4.3 Performed By: #### CBCDIF, CMET, TSH #### Unless otherwise noted, all testing performed by [facility] [address] [place], [place] [address] CLIA: [id number] Ice House Supervisor: Sb Arthur M.D. ALLERGIES ALLERGIES DATE TYPE / CODE NAME / CODE REACTION SEVERITY SOURCE 10/02/2018 Drug No Known Unknown [place] Allergy/416 Allergies/[id number] Community 817066(SNOM 8(RXNORM) Hospital ED CT) Repository 09/18/2018 Drug TETRACYCLINES [facility] Class/17221 Three Repository 1003(SNOMED CT) Drug NO KNOWN ALLERGIES [facility] Class/10990 Three Repository 1003(SNOMED CT) Drug/624414 dicyclomine pressure [facility] 003(SNOMED [facility]) brain System Repository Drug/051815 No Known Allergies [facility] 003(SNOMED [facility]) System Repository ENCOUNTERS ENCOUNTERS ADMIT/DISCHARGE ACCOUNT NUMBER ADMITTING ENCOUNTER LOCATION SOURCE CLASS 10/29/2018 [id number] [facility] ng:PT Repository 10/13/2018 [id number] [facility] ng:[facility] Repository 10/13/2018/ [id number] [facility]m 018 [facility] ng:[facility] Repository 10/13/2018/ [id number] [facility]m 018 [facility] ng:SamOrthoRoo Repository m: Room 5 10/13/2018 [id number] Ambulatory [address] [place] [address] Repository 09/18/2018 [id number] William ROTARY SOIL STABILIZER, Ambulatory [facility] Repository 09/18/2018/ [id number] [address]ulatory [address] Three Repository 08/28/2018 [id number] [facility] Regional ng:[facility] System Repository 08/28/2018/ [id number] Ophelia, [facility] Mu-Ism 018 [facility] ng:[facility]: System CD:[id number] Repository 08/12/2018/ [id number] Ambulatory Building:[address] Three Repository 08/06/2018 [id number] [facility] Toure and [facility] Repository 05/08/2018/ [id number] Emergency ABuilding:[address] Repository 05/07/2018/ [id number] Ambulatory Building:[address] Three Repository 04/08/2018/[id number] [facility] Mu[facility]Ism 018 Mykel Swanson [facility] ng:CD:[id number] [place] [address]Room: System CD:[id number] Repository 03/27/2018/[id number] [facility] Mu[facility]Ism 018 Rusty D [facility] ng:[facility] Repository 02/27/2018/ [id number] [facility] Mu[facility]m 018 [facility] ng:[facility] System Repository 01/29/2018 [id number] Deuce Ambulatory [facility] Dr[facility] Alphonse Toure and [facility] Repository 01/29/2018/ [id number] Ambulatory Building:[address] [facility] Three Repository 01/29/2018 [id number] Deuce, [facility] Dr[facility] Alphonse Toure and [facility] Repository 01/24/2018/ [id number] Ivpeter, Emergency Mu-Ism Mu-Ism 018 [facility] ng: EDRoom: Health WR System Repository PAYERS PAYERS ENCOUNTER GUARANTOR PAYER SUBSCRIBER SOURCE 10/29/2018 REI Welch [id number] S Insurance:AETNAPolicy LEIBOLTDOB: Community [place]IDGE Number: [id number] [id number] Repository [address]Xse: (330) Date:1464-41-96[phone] (HP) [id number] [place] [phone]: 10/29/2018 Secondary NOT GIVENUNK Yuri Insurance:SELF PAY [facility] Number: Effective Repository Date:2018-10-01 10/13/2018 REI Ortaaritan LEIBOLTDOB: Insurance:AETNAPolicy LEIBOLTDOB: [facility] S Number: Effective [id number] System BRIDGE Date:2018-10-13 BRIDGE Repository [place], [place] 4313-45-61[place] [address]Rua: Name:CD:[id number] [address] [address]Bkt: [address] [place] [address] (HP) [phone]: [phone] ([phone] () 10/13/2018 REI Ortaaritan LEIBOLTDOB: Insurance:AETNAPolicy LEIBOLTDOB: [facility] S Number: Effective [id number] System BRIDGE Date:2018-10-13 BRIDGE Repository [place], [place] 4778-16-12[place] [address]Fss: Name:CD:[id number] [address] [address]Tcj: [address] [place] [address] (HP) [phone]: [phone]) (HP) [phone] (WP) 10/13/2018 REI Horne Primary JERMAN Santana [facility]: Insurance:[facility] ALEXB: [facility] S AETNAPolicy Number: [id number] [place], [place] Date:2018-10-13 [place] [address]Ffp: [id number] [address]Chu: Name:CD:[id number] O (HP) [address], [place] ()Tel: [phone]: () [phone] 10/13/2018 REI Horne Primary [facility]ENTERLTDOB: [facility] HospitalB: Insurance:AetnaPolicy [id number] [facility] S Number: [facility] [id number] [place], [place] Date:Plan Name:[place] [address] [phone]: () 09/18/2018 Primary JERMAN WAGNER [facility] Insurance:Justino JOHNSONB: Lynn and Number: [id number] [place] [id number] Date:Plan Name:[place], [place] Repository [address] 09/18/2018 Secondary REI Horne [facility] Insurance:Shaw JOHNSONB: Victoriano and [facility] [id number] [facility] Number: [facility] [id number], [place] Repository Date:Plan [address]Oco: (253) Name:[facility] [phone] () [facility] [address] [place] [address]TA: 09/18/2018 REI Primary JERMAN MCMANUSLTDOB: [facility] Hospital[facility]: Insurance:AETNAPoly [id number] [facility] S Number: S BRIDGE Repository BRIDGE [id number] [place], [place] Date:3232-02-20NZ [address] [address]Jye: [phone]: [phone], [place] [phone] (HP) [phone] (HP) [phone]: 09/18/2018 Secondary [facility] Health Insurance:SHAW MARQUEZ: Three MANAGED [id number] Repository MEDICAIDPolicy S BRIDGE Number: [place], [place] [id number] [id number] Date:3941-56-[id number] [place] [address]YY: 08/28/2018 [facility] JERMAN Gretta OrtaMu-Ism ALBERDOB: Insurance:[facility] S Number: Effective [id number] System BRIDGE Date:2018-08-28 BRIDGE Repository [place], [place] 4684-52-58[place] [address]Xig: Name:CD:[id number] [id number]: [id number] [place] [address] (HP) [phone]: [phone] ([phone] () 08/28/2018 [facility] JERMAN Glynn Mu-Ism ALBERDOB: Insurance:AETNAPolalicey LEIBOLTDOB: [facility] S Number: Effective [id number] System BRIDGE Date:2018-06-23 BRIDGE Repository [place], [place] 1693-43-03[place]xt[place] [address]Qni: Name:CD:[id number] [id number]: [id number], [place] (HP) [phone]: [phone] ([phone] () 08/12/2018 REI Primary JERMAN LEIBOLTDOB: [facility] LEIBOLTDOB: Insurance:AETNAPolicy [id number] [facility] S Number: [facility] [id number] [place], [place] Date:4625-33-20[address]Url: [phone]: [phone], [place] [phone] (HP) [phone] (HP) [phone]: 08/12/[address] [facility] Health Insurance:FISHERSIMON KIRKLTDOB: Three MANAGED [id number] Repository MEDICAIDPolicy S BRIDGE Number: [place], [place] [id number] Date:5033-18-06ID [address] [place] [address]AE: 08/06/2018 Primary JERMAN WAGNER [facility] Insurance:AetnaPolradha LEIBOLTDOB: Lynn and Number: [id number] [place] [id number] [facility] Date:Plan Name:[place], [place] Repository [address] 08/06/2018 Secondary [facility] Insurance:Shaw KIRKLTB: Victoriano and [facility] [id number] [facility] Number: [facility] [id number] [place] Repository Date:Plan [phone]: 330) Name:[place] [phone] (HP) [facility] PennsylvaniaPO [address] [place] [address]RF: 05/08/2018 REI L Primary JERMAN LEIBOLTDOB: [facility]: Insurance:AETNA [id number] [facility] NACPolicy Number: [facility] [id number] [place] Date:2018-05-08 [address]Czv: [phone]: [phone] [id number] [phone] (HP)Tel: [phone] (HP) Name:ASHLEY SNYDER [id number], [place] (WP) [address]PY: 05/07/2018 REI Primary [facility] CenterBOLTDOB: Insurance:[facility]: [facility] S MANAGED [id number] Repository BRIDGE MEDICAIDPolicy S [place], [place] Number: [place], [place] [address]Gox: ([phone] [id number] [phone] (HP) Date:2366-85-01IX [address] [address]AR: 05/07/2018 Secondary [facility] Insurance:[facility]ORL[facility]OB: Three MANAGED [id number] Repository MEDICAIDPolicy S BRIDGE Number: [place], [place] [id number] Date:1923-44-06BS [address] [address]SZ: 04/08/2018 [facility] JERMAN JOHNSONB: [facility] S Number: Effective [id number] System BRIDGE Date:2018-04-08 BRIDGE Repository [place], [place] 7666-53-76[place] [address]Wwa: Name:CD:[id number] [id number]: [id number], [place] (HP) [phone]: [phone] ([phone] (WP) 03/27/2018 REI Horne Primary JERMAN JOHNSONB: Insurance:AETNAPolradha KIRKLTDOB: [facility] S Number: Effective [id number] System BRIDGE Date:2018-02-27 [place], [place] 1302-55-14[place] [address]Gqg: Name:CD:[id number] [id number]: [id number] [place] [address] (HP) [phone]: [phone] ([phone] (WP) 02/27/2018 REI Horne Primary JERMAN CAMPODOB: Insurance:AETNAPolradha KIRKLTDOB: [facility] S Number: Effective [id number] System BRIDGE Date:2018-02-11 [place], [place] 6429-31-15[place] [address]Ypr: Name:CD:[id number] [id number]: [id number] [place] [address] (HP) [phone]: [phone] ([phone] (WP) 01/29/2018 Primary JERMAN KRISTY [facility] Insurance:AeGordy MARQUEZ: Victoriano and Number: [id number] [place] [id number] Health [facility] Date:Plan Name:[place], [place] Repository [address] 01/29/2018 Secondary REI Horne [facility] Insurance:Shaw MARQUEZ: Victor[place] and August of [id number] [facility] Number: [facility] [id number], [place] Repository Date:Plan [address]Jso: ([phone]) Name:[facility] [phone] (HP) [facility] [id number] [place] [address]EI: 01/29/2018 REI Primary JERMAN LEIBOLTDOB: [facility]BOLTDOB: Insurance:[facility] [id number] Three S Number: S BRIDGE Repository BRIDGE [id number], [place] Date:7415-41-51IA [address] [address]Phr: [phone]: [phone], [place] [phone] (HP) [phone] (HP) [address]DX: 01/29/2018 Secondary JERMAN LEIBOLTDOB: [facility] Insurance:[facility] [id number] Three Number: S BRIDGE Repository [id number], [place] Date:2640-32-86XL [address] [address]Qfm: [phone] [id number] [place] [phone] (HP) [address]MT: 01/24/2018 REI L Primary JERMAN MCMANUSBOLTDOB: Insurance:[facility]ELong [facility] HospitalB: [facility] S Number: Effective [id number] System BRIDGE Date:2018-01-24 BRIDGE Repository [place], [place] 9599-20-57Cwry[address] [place] [address]Qbq: Name:CD:[id number] [id number]: [id number] [place] (HP) [phone]: [phone] ()
--- OUTSIDE RECORDS SUMMARY | 2018-12-10 18:44 | XMS RPT_ITS | Summary of Care ---
:1980 Author Organization [facility] Address [address] [place] [address] Phone Care Team Providers Name Role Phone Unavailable Primary Care Provider Unavailable Encounter Details Date Type Department Care Team Description 07/11/2017 Hospital Encounter [facility] Harvey Silverio MD [address] [place] [address] [place] [address] [phone] Allergies No Known Allergiesas of this encounter [...] Visit Sports Medicine Jose Mcghee MD [address] [place] [address] [phone] 08/02/2017 Hospital Encounter Harvey Silverio MD [address] [place] [address] [phone] Health Maintenance Due Date Last Done Comments PAP SMEAR 1980 TETANUS EVERY 10 YR 1978 SEQUENTIAL INFLUENZA VACCINE (#1) 2017 as of this encounter Insurance Payer Benefit Plan / Group Subscriber ID Type Phone Address AETNA AETNA CHOICE POS/POSII/PREMIER CARE/PREMIER [id number] CARE PLUS as of this encounter
--- OUTSIDE RECORDS SUMMARY | 2018-12-10 18:44 | XMS RPT_ITS | Summary of Care ---
:1980 Author Organization [facility] Address [address] [place] [address] Care Team Providers Name Role Phone Jose Mcghee MD Unavailable Alphonse Tripathi MD Primary Care Provider Reason for Visit Reason Comments Follow-up F/U on chronic medical problems, skin rash Encounter Details Date Type Department Care Team Description 05/07/2018 Office Visit [facility] Primary Alphonse Tripathi Dermatitis (Primary Dx); Care Physicians MD Rashaun CKD (chronic kidney disease) stage 3, GFR 30-59 ml/min; [address] Chronic [place] [address] [place], [place] [phone] [address] [phone] Allergies No Known Allergiesas of this encounter Medications Prescription Sig. Disp. Refills Start Date End Date Status tiZANidine Take 4 mg by Active (ZANAFLEX) 4 MG mouth 3 (three) tablet times a day as needed for muscle spasms. lidocaine Place 1 patch Active (LIDODERM) 5 % on the skin patch daily Remove & Discard patch within 12 hours or as directed by . amitriptyline Take 1 (one) 30 tablet 3 01/29/2018 Active (ELAVIL) 25 MG tablet (25 mg tablet total) by mouth nightly. buPROPion Take 1 (one) 60 tablet 11 01/29/2018 Active (WELLBUTRIN SR) 150 tablet (150 mg 9 MG 12 hr tablet total) by mouth 2 (two) times a day. gabapentin Take 600 mg by Active (NEURONTIN) 600 MG mouth 3 (three) tablet times a day. topiramate Take 50 mg by Active (TOPAMAX) 50 MG mouth 2 (two) tablet times a day. traMADol (ULTRAM) Take 1 (one) 30 tablet 0 05/07/2018 Active 50 mg tablet (50 mg tabletIndications: total) by mouth Chronic right hip every 12 pain (twelve) hours as needed for pain. clotrimazole-betame Apply topically 30 g 0 05/07/2018 Active thasone (LOTRISONE) 2 (two) times a 8 cream day for 10 days. clindamycin Take 300 mg by Discontinued (CLEOCIN) 300 MG mouth 3 (three) 8 capsule times a day. topiramate Take 1 (one) 30 tablet 2 01/29/2018 Discontinued (TOPAMAX) 50 MG tablet (50 mg 8 tablet total) by mouth daily. gabapentin Take 1 (one) 90 capsule 2 01/29/2018 Discontinued (NEURONTIN) 300 MG capsule (300 mg 8 capsule total) by mouth 3 (three) times a day 3 month's supply. traMADol (ULTRAM) Take 1 (one) 90 tablet 2 01/29/2018 Discontinued 50 mg tablet (50 mg 8 tabletIndications: total) by mouth Chronic right hip every 8 (eight) pain hours as needed for pain. as of [...] Smoker Cigarettes 0.25 Smokeless Tobacco: Never Used Tobacco Cessation: Counseling Given: Yes Comments: Patient smokes the e cigarettes. Alcohol Use Drinks/Week oz/Week Comments No 0 Standard drinks or equivalent 0.0 Sex Assigned at Date Recorded Not on file as of this encounter Last Filed Vital Signs Vital Sign Reading Time Taken Blood Pressure 118/64 05/07/2018 10:08 AM EDT Pulse 88 05/07/2018 10:08 AM EDT Temperature 36.8 ??C (98.2 ??F) 05/07/2018 10:08 AM EDT Respiratory Rate 16 05/07/2018 10:08 AM EDT Oxygen Saturation 99% 05/07/2018 10:08 AM EDT Inhaled Oxygen Concentration - - Weight 136 kg (299 lb 12.8 oz) 05/07/2018 10:08 AM EDT Height 175.3 cm (5' 9) 05/07/2018 10:08 AM EDT Body Mass Index 44.27 05/07/2018 10:08 AM EDT in this encounter Progress Notes Alphonse Tripathi MD - 05/07/2018 10:45 AM EDTFormatting of this note may be different from the original. Zeinab Newberryjenny 1980 [id number] HPI: Patient was here today mainly to follow-up on her chronic medical problems but also complained of patches of skin rash. Patient stated today that she has developed patches of dry scaly skin rash on her left leg, left alejandro also right foot and she has noticed this rash in the past month or so. She does not have much itching on the rash. She has tried OTC hydrocortisone without much relief of the symptoms. Patient stated that she was given Lotrisone by Dr. Silverio in the past when she had similar rash and she seemedto have relief from it. Chronic right hip pain: Patient stated that she started seeing a pain management physician in [place] for her right hip pain and he has increased the dose of gabapentin and Topamax and she has been Tolerating these medications well. She also is tapering off her tramadol at this time and is currently taking 1 tablet twice daily in the past few days. Requesting a refill on the prescription of this medication so that she can completely tapered off. Her hip pain symptoms seem to be reasonably under control with current medication regimen. She also stated that her pain management physician will not prescribe her the Ultram at this time. Patient's recent labs also showed renal insufficiency with a GFR in the stage III kidney disease andpatient seems to have had mild renal insufficiency for quite some time based on her old labs. She does not have any known history of kidney problems or kidney stones. She has been monitoring her blood pressure at home on a regular basis and it has been consistently in the range of 110???120/65???80. Patient Active Problem List Diagnosis SNOMED CT(R) ??? Fibrous dysplasia of bone FIBROUS DYSPLASIA OF BONE ??? IBS (irritable bowel syndrome) IRRITABLE BOWEL SYNDROME ??? Chronic pain syndrome CHRONIC PAIN SYNDROME ??? Mood disorder of depressed type DEPRESSIVE DISORDER ??? Chronic right hip pain HIP PAIN ??? CKD (chronic kidney disease) stage 3, GFR 30-59 ml/min CHRONIC KIDNEY DISEASE STAGE 3 Past Medical History: Diagnosis Date ??? Chronic [...] Negative. Gastrointestinal: Negative. Endocrine: Negative. Genitourinary: Negative. Physical Exam: Vitals: 06/20/18 1008 BP: 118/64 BP Location: Right arm Patient Position: Sitting BP Cuff Size: X-large Adult Pulse: 88 Resp: 16 Temp: 98.2 ??F (36.8 ??C) TempSrc: Oral SpO2: 99% Weight: 136 kg (299 lb 12.8 oz) Height: 5' 9 Physical Exam Constitutional: She is oriented to person, place, and time. She appears well- nourished. No distress. Obese patient Neck: Carotid bruit is not present. No thyromegaly present. Cardiovascular: Normal rate, regular rhythm, normal heart sounds and intact distal pulses. No murmur heard. Pulmonary/Chest: Effort normal and breath sounds normal. No respiratory distress. She has no wheezes. She has no rales. Abdominal: Soft. Bowel sounds are normal. She exhibits no distension. There is no tenderness. Musculoskeletal: She exhibits no edema. Neurological: She is alert and oriented to person, place, and time. Skin: Three patches of dry scaly skin rash, one each on right foot, left arm and left leg, ranging from 1 cm to 1 inch Assessment & Plan: SNOMED CT(R) 1. Dermatitis ECZEMA 2. CKD (chronic kidney disease) stage 3, GFR 30-59 ml/min CHRONIC KIDNEY DISEASE STAGE 3 Basic Metabolic Panel 3. Chronic right hip pain HIP PAIN traMADol (ULTRAM) 50 mg tablet Skin rash: Possibly tinea infection. Prescribed Lotrisone. Patient was also counseled for skin hygiene. CKD: I have discussed possible complications and also possible etiology for CKD. Patient was advised to avoid any nephrotoxic agents like nonsteroidal anti- inflammatory drugs and IV contrast etc. We will continue to monitor her labs for now. Repeat BMP in 3 months. Chronic right hip pain: Patient was again advised to taper off and completely discontinue Ultram in the next 1 month and she was given a prescription for 30 tablets. She is currently taking 1 tablet twice daily in the past 4 days and hence she was advised to continue 1 tablet twice daily for the next1 week and then 1 tablet once daily for the next 10 days and then 1 tablet every other day until it is completely gone. She was advised to continue to follow-up with pain management as well. Advised to lose weight. Return in about 3 months (around 08/07/2018). Patient education & instructions given for: Patient [...] and she would prefer to see an CAMPAIGN SPECIALIST and hence was provided contact information for women's care. ? Please note: Portions of this chart may have been created with Secure64 voice recognition software. Occasional wrong-word or sound-like substitutions may have occurred due to inherent limitations of the voice recognition software. Please read the chart carefully and recognize, using context, where the substitutions have occurred. Alphonse Tripathi MD in this encounter Plan of Treatment Upcoming Encounters Date Type Specialty Care Team Description 08/12/2018 Office Visit Primary Care Alphonse Tripathi MD [address] [address] [phone] Scheduled Tests Name Priority Associated Diagnoses Order Schedule Basic Metabolic Panel Routine CKD (chronic kidney disease) Expected: 08/07/2018, stage 3, GFR 30-59 ml/min Expires: 05/07/2019 Health Maintenance Due Date Last Done Comments PAP SMEAR 1978 URINE MICROALBUMIN 1988 LIPID PANEL 01/23/2018 07/26/2017 SEQUENTIAL INFLUENZA VACCINE (Season Ended) 2018 TETANUS EVERY 10 YR 10/31/2027 10/31/2017 as of this encounter Visit Diagnoses Diagnosis Dermatitis - Primary Contact dermatitis and other eczema, due to unspecified cause CKD (chronic kidney disease) stage 3, GFR 30-59 ml/min Chronic kidney disease, Stage III (moderate) Chronic right hip pain
--- NOTE | 2019-02-20 09:33 | HP.PT.NRP ---
HP - Discharge Summary (1) - Patient Information REI CAMPO was seen in my office for initial evaluation on 10/15/18. The following Plan of Care was established for this patient: Initial Frequency: 2-3x /Week Initial Duration: 6 Weeks - Anticipated Interventions Patient/Client Instruction: Educate patient on: Condition For the Purpose of:: To decrease pain, To increase ROM, To improve nutrient delivery to tissue, To improve muscle performance and motor function, To increase tolerance to activity/condition/position, To improve performance and independence with ADL's, To decrease level of supervision to perform tasks, To improve gait and locomotor functions, To decrease soft tissue restriction, To increase flexibility/ROM Therapeutic Exercise to Include: Strength training, Gait and locomotor training, In an aquatic setting, Active ROM, Dynamic Lumbar Stabilization For the Purpose of:: To decrease pain, To improve nutrient delivery to tissue, To improve muscle performance and motor function, To improve ability to perform ADL's, To increase tolerance to activity/condition/position, To improve ability of physical actions for home/community/work/leisure, To improve gait and locomotor functions, To improve health of tissue Manual Therapy Techniques to Include: Scar massage, Soft tissue mobilization For the Purpose of:: To improve health of tissue This patient was last seen in our office 10/29/18. Pertinent comments regarding their Physical therapy will appear below: Pt did not reschedule with supervising PT for her DC visit. She will be discharged at this time. At this point I will be discontinuing this patient from physical therapy. I would be happy to see this patient again in the future if found appropriate by the physician. Thank you! Janet Martinez, MPT
== END 2018-10-29 19:00 | disposition home or self-care (01) ==
LOC: PT 13:30
DX: M25.551 Pain in right hip (principal); M54.5 Low back pain; M76.30 Iliotibial band syndrome, unspecified leg; L90.5 Scar conditions and fibrosis of skin; Z96.641 Presence of right artificial hip joint
CPT/HCPCS: 97110; 97113; 97161

== ENCOUNTER 2019-09-15 08:38 | Emergency (ER) | payer OTHER, MEDICAID, SELFPAY ==
[2019-09-15 08:39] VITALS: BP 165/87; PULSE 109; RESP 22; TEMP 36.2; O2SAT 99; BMI 47.2
--- NOTE | 2019-09-15 08:54 | ED.VIS.GEN ---
History of Present Illness Chief Complaint: Cough Informant: Patient Onset: Today, Days - 3 Timing: Continuous Current Severity: Moderate Maximum Severity: Moderate Narrative: Patient presents with cough congestion and inability to sleep for the past 3 days. She was seen by the urgent care she was given steroids she was given antibiotics as well as cough medications. She continues to have the symptoms and shows little improvement after 3 days. He has no fever or chills she has no breathing difficulty. She has some abdominal pain from coughing. She has no diarrhea. She has no headache neck pain or neck stiffness. Past Medical History - Allergies and Home Meds Allergies/Adverse Reactions: Allergies No Known Allergies Allergy (Verified 09/15/19 08:39) Primary Care Physician: Vanessa Mendoza,Out of [Primary Care Provider] - Past Medical History: - - Chronic right hip pain Smoking Status: Current every day smoker Review of Systems All systems negative except as indicated General: Denies: Fever ENT: Reports: Rhinorrhea, Sore throat. Denies: Bilateral ear pain Cardiovascular: Denies: Chest pain, Palpitations Respiratory: Reports: Cough. Denies: Dyspnea, Dyspnea on exertion Musculoskeletal: Denies: Myalgias, Arthralgias, Neck pain, Back pain Skin: Denies: Rash Neurological: Denies: Weakness Psych: Denies: Depression Endocrine: Denies: Polyuria Hematologic: Denies: Easy bruising Physical Exam Vital Signs/Narrative: Vital Signs Temp Pulse Resp BP Pulse Ox 09/15/19 08:39 97.1 F L 109 H 22 H 165/87 H 99 General: Well nourished Eyes: Perrl ENT: - - There is upper airway congestion, rhinorrhea, nasal turbinates are slightly swollen but they are pink and not erythematous. There is some postnasal drip but no pharyngeal erythema or exudates Cardiovascular: Regular rate, Regular rhythm Respiratory: No distress, CTA bilaterally Abdomen: Soft, Nontender Back: Nontender, Normal Inspection Extremities: Nontender Skin: Normal color Neurological: Alert, Normal Strength, Normal Sensation Diagnostic/Tx/Re-eval - Medical Decision Making Patient has clear lungs and an upper respiratory infection clinically. This is been ongoing for 3 days she is certainly does not meet any criteria for antibiotics. She is already on steroids. She is requesting something for her cough. I will put her on symptomatic treatment and I will give her an inhaler. Discharge stable condition ED Disposition - Plan for ED Patient: Disposition: Home or Assisted Living Instructions: BRONCHITIS, No Antibiotic (Adult) Prescriptions: Codeine Phosphate/Guaifenesin [Codeine-Guaifen 10-100 mg/5 ml] 5 ml PO TID #120 ml Prescription Printed Referrals: [facility] Doctor,Out of [Primary Care Provider] - 3-5 Days
[2019-09-15 08:58] VITALS: TEMP 36.2
== END 2019-09-15 09:21 | disposition home or self-care (01) ==
PROVIDERS: Emergency Provider Emergency Medicine
DX: J06.9 Acute upper respiratory infection, unspecified (principal); F17.200 Nicotine dependence, unspecified, uncomplicated
CPT/HCPCS: 99282

== ENCOUNTER 2019-11-02 17:19 | Emergency (ER) | payer OTHER, MEDICAID, SELFPAY ==
[2019-11-02 17:20] VITALS: BP 139/94; PULSE 88; RESP 16; TEMP 36.6; O2SAT 99; BMI 47.2
--- NOTE | 2019-11-02 17:22 | RAD_ITS ---
STUDY: X-RAY - LEFT FOOT CLINICAL: Female, 39 years old. Left foot pain for 2 weeks TECHNIQUE: 3 view(s) of the foot. COMPARISON: None. FINDINGS: There is a plantar calcaneal spur. Normal visualized subtalar, talonavicular, calcaneocuboid, tarsal and tarsometatarsal articulations. Normal metatarsi. Normal metatarsophalangeal joint of the great toe. There is a bipartite tibial sesamoid. Normal interphalangeal joint of the great toe. Normal phalanges of the great toe. Normal second through fifth metatarsophalangeal joints. Normal interphalangeal joints and phalanges of the lesser toes. The soft tissue structures are unremarkable. RAD/Foot min 3 Views IMPRESSION: No acute fracture or erosive process. Electronically Signed: Roger Flores MD (Brooks) at 17:50 EST , Service support ,
--- NOTE | 2019-11-02 18:32 | ED.DCSUM_ITS ---
- ER Visit Summary Date of Service: 11/02/19 Chief Complaint: Left foot pain History of Present Illness: The patient is a [address] Bishop. She reports that she has pain in her left foot that began 2 weeks ago. She reports I think I stepped wrong. Describes an aching, burning pain is 10 on 10 at worst and 7-10 currently. Is worsened by walking. Is relieved by ibuprofen, Tylenol, and Aleve. She denies any numbness or weakness. Physical Examination: Vitals: Stable. Afebrile. General: Well-nourished and well-developed. Head: Normocephalic atraumatic. Neck: Supple, no lymphadenopathy. No JVD. Nontender. Cardiovascular: Regular rate and rhythm. No murmurs. Respiratory: No respiratory distress. Clear to auscultation bilaterally. Abdominal: Soft, nontender, nondistended, normal bowel sounds. No guarding, rebound, or peritoneal signs. Back: Nontender. Extremities: Moderate diffuse tenderness palpation over her entire left foot. There is no point tenderness. There is no soft tissue swelling or contusion. She is a 2+ dorsalis pedis pulse. Skin: Normal color, no rash. Neurologic: Alert and oriented ?3. Cranial nerves II through XII are intact. Normal strength and sensation. Psych: Normal affect. Test Results: Clinical Impression(s) from Imaging Studies Foot X-Ray 11/02/19 17:22 IMPRESSION: No acute fracture or erosive process. Electronically Signed: Roger Flores MD ([place]) at 17:50 EST , Service support , Emergency Department Course and Treatment: Patient was treated with naproxen. She was placed in a postop shoe. Treatment Plan: Patient's will be discharged instructions to follow-up with Dr. Roberts in 1 week if not improving. She is instructed to use naproxen for pain. Return to the emergency department for any worsening symptoms. Disposition: To home in improved and stable condition. Impression: 1. Left foot pain. This note was generated with [employer] software. It may contain incorrect words, spelling, and punctuation that were not noted in review of the chart prior to signing ED Disposition - Plan for ED Patient: Disposition: Home or Assisted Living Instructions: Sprain Foot Prescriptions: Naproxen [Naprosyn] 500 mg PO BID #14 tab Prescription Printed Referrals: Otoniel Roberts DPM [STAFF PHYSICIAN] - 1 Week if not improving
--- NOTE | 2019-11-02 18:54 | ED.RN ---
patient leaving. states she has to be at work. refused medicine. refused post op shoe
== END 2019-11-02 19:03 | disposition home or self-care (01) ==
LOC: ED 18:57
PROVIDERS: Emergency Provider Emergency Medicine
DX: M79.672 Pain in left foot (principal); Z72.0 Tobacco use
CPT/HCPCS: 73630; 99282